=== PATIENT | female | born 1995 | race African-American/Black ===

== ENCOUNTER 2021-01-20 01:05 | Inpatient (IN) | payer MEDICAID ==
[~2021-01-20] VITALS: Ht 157.5 cm; Wt 95.7 kg
[2021-01-20] VITALS (14 sets, daily range): BP systolic 107–137; BP diastolic 62–98
[~2021-01-20 01:05] MED LIST: ABREVA2 GM TOP; FLAGYL500 MG PO; FLEXERIL PO; NAPROSYN500 MG PO; NOHOMEMEDICATIONS; PEPCID20 MG PO; TIZANIDINE HCL4 MG PO
[2021-01-20] MEDS ORDERED: CYMBALTA30 MG PO (01:14)
[2021-01-20] MEDS ORDERED: ADDERALL 10 MG10 MG PO (01:14)
[2021-01-20] MEDS ORDERED: HYDROXYZINE PAM25 M1 PO (01:15)
[2021-01-20] MEDS ORDERED: CHILDREN'S ZYRT10 M1 PO (01:15)
[2021-01-20] MEDS ORDERED: [UNRECOGNIZED DRUG - OTHER] PO (01:16)
[2021-01-20 02:38] LABS: ABSOLUTE NEUTROPHILS 4.9 thou/uL (1.4-8.2)
[2021-01-20 02:41] LABS: BASOPHILS 0.4 % (0.0-2.0); EOSINOPHILS 0.9 % (0.0-3.0); LYMPHOCYTES 18.7 % (24.0-44.0); MCH 20.1 pg (26.0-34.0); MCHC 31.1 g/dL (28.0-37.0); MCV 64.6 fL (80.0-100.0); MONOCYTES 7.6 % (1.0-8.0); PLATELET COUNT 434 thou/uL (150-400); POLYS 72.4 % (36.0-66.0); RBC 2.89 mil/uL (4.20-5.00); WBC 6.7 thou/uL (4.0-11.0)
[2021-01-20 02:43] LABS: ANION GAP 10 mmol/L (7-16); BUN 11 mg/dL (7-18); CALCIUM 8.2 mg/dL (8.5-10.1); CHLORIDE 104 mmol/L (98-107); CO2 25 mmol/L (21-32); CREATININE 0.7 mg/dL (0.6-1.0); GLUCOSE 102 mg/dL (74-106); POTASSIUM 3.4 mmol/L (3.5-5.1); SODIUM 139 mmol/L (136-145)
[2021-01-20 02:46] LABS: HEMOGLOBIN 5.8 gm/dL (12.0-15.0)
[2021-01-20 02:47] LABS: HEMATOCRIT 18.7 % (37.0-47.0)
[2021-01-20 02:53] LABS: MAGNESIUM 1.7 mg/dL (1.8-2.4); TROPONIN-I <0.06 ng/mL (<0.06)
[2021-01-20] MEDS ORDERED: [UNRECOGNIZED DRUG - OTHER] PO (03:44)
[2021-01-20 05:09] LABS: % SATURATION 2 % (20-39); IRON 9 ug/dL (50-170); TIBC 386 ug/dL (250-450)
[2021-01-20 05:11] LABS: FOLIC ACID 14.6 ng/mL (8.6-58.9)
--- NOTE | 2021-01-20 07:23 | NUR ---
PT ARRIVED TO [facility] AT AROUND 04:30 AM. VSS AFEBRILE. 100 % ON RA. ALERT AND ORIENTED X4. EXPLAINED FALL PRECAUTIONS. PT AGREED TO CALL PRIOR TO GETTING OOB DUE TO WEAKNESS AND DIZZINESS AND HX OF SYNCOPAL EPISODE. HG 5.8. I UNIT PRBCS INFUSING. NO S/S REACTION NOTED. INFORMED DAY SHIFT NS TO RECHECK HG 1 HR AFTER TRANSFUSION. INFORMED NURSE HEAD VICTORIANO PT C/O PALPITATION TYPE PAIN IN CHEST GOING ALL THE WAY BACK TO HER BACK. NURSE HEAD STATED SHE WOULD ORDER SOMETHING FOR HER PAIN OTHER THAN TYLENOL OR IBUPROFEN DUE TO BLEEDING. STILL WAITING FOR ORDER. DAY SHIFT NS TEXTED CELI TO F/U FOR PAIN MEDS. SCDS ON . BED ALARM ON. CAREPLAN INITIATED.
--- NOTE | 2021-01-20 08:57 | EKG ---
[address] [place] [employer] [place] [address] ELECTROCARDIOGRAM REPORT Name: FISH GRAVES Room #: 356-P ADM IN M.R.#: [id number] Admission: 01/20/21 Attend Phys: Pierce Diana Discharge: Date of : 89 Report #: [id number] [facility] ED Test Date: 2021-01-20 Test Time: 01:12:09 Pat Name: FISH GRAVES Department: Room: 356 P Gender: F Public Works Technician: NATE : 1995 Requested By: Pierce Diana Order Number: [id number] MD: Kevon Cm Measurements Intervals [place] Rate: 103 P: 48 VT: 177 QRS: 19 QRSD: 80 T: -1 QT: 326 QTc: 427 Interpretive Statements Sinus tachycardia Borderline T abnormalities, diffuse leads Compared to ECG 03/22/2015 00:29:07 T-wave abnormality now present Sinus rhythm no longer present Electronically Signed On 01-20-2021 8:57:14 CDT by Kevon Cm [email or web address] <ELECTRONICALLY SIGNED> By: Kevon Cm MD, [facility] 01/20/21 0857 011 011 Kevon Cm MD, FACC /EPI
[2021-01-20 10:23] LABS: HEMOGLOBIN 7.3 gm/dL (12.0-15.0)
--- NOTE | 2021-01-20 10:36 | NUR ---
MESSAGED DR GALAVIZ, PT HGB NOW 7.3 AFTER 1 UNIT BLOOD
[2021-01-20 17:19] LABS: HEMATOCRIT 26.7 % (37.0-47.0); HEMOGLOBIN 8.8 gm/dL (12.0-15.0)
--- NOTE | 2021-01-20 17:35 | NUR ---
THIS RN MESSAGED DR GALAVIZ OF PT HBG 8.8
--- NOTE | 2021-01-20 18:36 | NUR ---
DR GALAVIZ REQUESTED THIS RN TO CALL DR VENTURA TO SEE IF SHE IS READY FOR PT TO DC. THIS RN LEFT VM FOR DR VENTURA AT HER LISTED OFFICE NUMBER. NO ANSWERING SERVICE AVAILABLE.
--- NOTE | 2021-01-20 18:40 | NUR ---
PER DR VENTURA: PT IS OK TO DC. PT IS TO TAKE ONE CONTROL PILL PER DAY. PT NEEDS TO CALL DR VENTURA OFFICE 01/21/21 IN MORNING FOR FOLLOW UP APPOINTMENT. THIS RN RELAYED PHYSICIAN MESSAGE TO DR GALAVIZ.
--- NOTE | 2021-01-20 19:30 | NUR ---
[facility] stated pt's called her answering service because of CP(comes and goes) and ABD fiscomfort. Pt's told her that she doesn't feel comfortable to go home since her constipation and CP aren't resolving yet. For OB stand point she can d/c home ,but would like me to pass on message to . Will obtain vs and call physician environmental health and safety leader.
--- NOTE | 2021-01-20 19:45 | NUR ---
Notified Delfina Blas NP regarding of CP and ABD discomfort episode; see new orders. SHe is awared of pt refused to be d/c home tonight.
[2021-01-21 04:22] LABS: HEMATOCRIT 28.4 % (37.0-47.0); MCH 22.6 pg (26.0-34.0); MCHC 31.5 g/dL (28.0-37.0); RBC 3.97 mil/uL (4.20-5.00); RDW 23.9 % (10.5-14.5); WBC 6.8 thou/uL (4.0-11.0)
[2021-01-21 04:35] LABS: MCV 71.5 fL (80.0-100.0)
[2021-01-21 05:45] VITALS: BP 108/67
--- NOTE | 2021-01-21 06:10 | NUR ---
Pt able to sleep tonight after received IV fentnayl. Continue to c/o ABD cramping. She reported changed pad x2 tonight. Hb stable. No result from taking Maxitrate yet. Continue to monitor any changes.
[2021-01-21 07:45] VITALS: BP 110/76
--- NOTE | 2021-01-21 07:48 | NUR ---
ASSUMED PT CARE AT SHIFT CHANGE, PT AWAKE THIS MORNING. PT HAD NOT COMPLETED MAG CITRATE DRINK. THIS RN ENCOURAGED PT TO CONSUME. PT DID FINISH DRINK WHILE THIS RN IN ROOM. PT STATES SHE HAS NOT BEEN ABLE TO HAVE BM YET.
--- NOTE | 2021-01-21 09:45 | NUR ---
THIS RN ADMINISTERED FLEETS ENEMA TO PT. PT UNABLE TO HOLD CONTENTS MORE THAN 30 SECONDS. PT AMBULATED TO TOILET. THIS RN PROVIDED SIDEWAYS TRASH CAN UNDER PT LEGS TO PROVIDE SQUAT POSITION TO ASSIST IN BM. PT ON TOILET AT THIS TIME.
[2021-01-21] MEDS ORDERED: SENOKOT-S1 TA2 PO (09:49)
[2021-01-21 10:25] VITALS: BP 129/77
--- NOTE | 2021-01-21 10:28 | NUR ---
PT HAD SUCCESSFUL SMALL AMOUNT OF BM. PT ABLE TO DRINK PRUNE JUICE, PRN MIRALAX. PT STATES SHE IS GOOD WITH GOING HOME/DC. PT HAS SPOKEN WITH DR VENTURA OFFICE FOR FOLLOW UP APPOINTMENT. PT MOTHER WILL TAKE PT HOME.
[2021-01-21 11:16] VITALS: BP 129/77
[2021-01-21 11:18] VITALS: BP 129/77
== END 2021-01-21 11:15 | disposition home or self-care (01) | DRG 760 ==
LOC: ER 01:05 → EROBS 03:41 → 3W 03:41
PROVIDERS: Emergency Medicine; Nurse Practitioner Family; ADMIT Hospitalist; ATTEND Hospitalist
PROC: 30233N1 Transfusion of Nonautologous Red Blood Cells into Peripheral Vein, Percutaneous Approach (ICD-10-PCS; principal; 2021-01-20)
DX: N93.8 Other specified abnormal uterine and vaginal bleeding (principal); D62 Acute posthemorrhagic anemia; E28.2 Polycystic ovarian syndrome; F41.9 Anxiety disorder, unspecified; Z79.899 Other long term (current) drug therapy; Z91.048 Other nonmedicinal substance allergy status; Z91.018 Allergy to other foods; Z87.440 Personal history of urinary (tract) infections; Z87.891 Personal history of nicotine dependence
CPT/HCPCS: 10879; 23012

== ENCOUNTER 2021-04-20 15:28 | Emergency (ER) | payer MEDICAID ==
[~2021-04-20] VITALS: Ht 157.5 cm; Wt 85.3 kg
[~2021-04-20 15:28] MED LIST changes: +ADDERALL 10 MG10 MG PO; +CHILDREN'S ZYRT10 M1 PO; +CYMBALTA30 MG PO; +HYDROXYZINE PAM25 M1 PO; +SENOKOT-S1 TA2 PO; +[UNRECOGNIZED DRUG - OTHER] PO; +[UNRECOGNIZED DRUG - OTHER] PO
[2021-04-20 16:15] LABS: ABSOLUTE NEUTROPHILS 2.8 thou/uL (1.4-8.2); EOSINOPHILS 1.9 % (0.0-3.0); HEMATOCRIT 38.5 % (37.0-47.0); HEMOGLOBIN 12.2 gm/dL (12.0-15.0); LYMPHOCYTES 30.1 % (24.0-44.0); MCH 23.4 pg (26.0-34.0); MCHC 31.7 g/dL (28.0-37.0); MCV 73.7 fL (80.0-100.0); MONOCYTES 10.8 % (1.0-8.0); PLATELET COUNT 386 thou/uL (150-400); POLYS 56.2 % (36.0-66.0); RBC 5.23 mil/uL (4.20-5.00); RDW 19.4 % (10.5-14.5)
[2021-04-20 16:23] LABS: URINE BILIRUBIN NEGATIVE (Negative); URINE BLOOD NEGATIVE (Negative); URINE CLARITY CLEAR; URINE COLOR YELLOW; URINE GLUCOSE-RANDOM* NEGATIVE (Negative); URINE KETONES 2+ (Negative); URINE LEUKOCYTES-REFLEX NEGATIVE (Negative); URINE NITRITE-REFLEX NEGATIVE (Negative); URINE PROTEIN (DIPSTICK) NEGATIVE (Negative); URINE SPECIFIC GRAVITY 1.025 (1.005-1.035)
[2021-04-20 16:24] LABS: CALCIUM 9.2 mg/dL (8.5-10.1); CREATININE 0.8 mg/dL (0.6-1.0)
[2021-04-20 16:34] LABS: TOTAL BILIRUBIN 0.3 mg/dL (0.2-1.0); TOTAL PROTEIN 8.2 g/dL (6.4-8.2)
[2021-04-20 18:24] VITALS: BP 128/85
== END 2021-04-20 18:25 | disposition home or self-care (01) ==
LOC: ER 15:28
PROVIDERS: Emergency Medicine; Nurse Practitioner
DX: K59.00 Constipation, unspecified (principal); N83.202 Unspecified ovarian cyst, left side; F41.9 Anxiety disorder, unspecified; Z79.899 Other long term (current) drug therapy; Z91.02 Food additives allergy status; Z91.038 Other insect allergy status

== ENCOUNTER 2021-05-30 11:55 | Emergency (ER) | payer MEDICAID ==
[~2021-05-30] VITALS: Ht 157.5 cm; Wt 81.7 kg
[2021-05-30 12:35] LABS: ABSOLUTE NEUTROPHILS 2.5 thou/uL (1.4-8.2); BASOPHILS 0.5 % (0.0-2.0); WBC 4.4 thou/uL (4.0-11.0)
[2021-05-30 12:37] LABS: EOSINOPHILS 2.1 % (0.0-3.0); HEMATOCRIT 34.7 % (37.0-47.0); LYMPHOCYTES 28.8 % (24.0-44.0); MCH 23.8 pg (26.0-34.0); MCHC 31.8 g/dL (28.0-37.0); MCV 74.8 fL (80.0-100.0); MONOCYTES 12.4 % (1.0-8.0); PLATELET COUNT 317 thou/uL (150-400); POLYS 56.2 % (36.0-66.0); RBC 4.64 mil/uL (4.20-5.00); RDW 16.9 % (10.5-14.5)
[2021-05-30 12:45] LABS: CALCIUM 8.7 mg/dL (8.5-10.1); CREATININE 0.7 mg/dL (0.6-1.0); POTASSIUM 3.9 mmol/L (3.5-5.1)
[2021-05-30 12:51] LABS: ALBUMIN 3.5 g/dL (3.4-5.0); TOTAL BILIRUBIN 0.4 mg/dL (0.2-1.0); TOTAL PROTEIN 7.3 g/dL (6.4-8.2)
[2021-05-30] MEDS ORDERED: MEDROLDOSEPACK PO (15:03)
[2021-05-30 15:32] VITALS: BP 128/68
--- NOTE | 2021-05-31 08:14 | EKG ---
[address] [place] [address] ELECTROCARDIOGRAM REPORT Name: FISH GRAVES Room #: [facility] Mariano#: [id number] Admission: 05/30/21 Attend Phys: Discharge: 05/30/21 Date of : [birth year] Report #: [id number] [facility] ED Test Date: 2021-05-30 Test Time: 12:09:21 Pat Name: FISH GRAVES Department: Room: Gender: F Communications Assistant: PRIYANKA : 1995 Requested By: Dusty Medina Order Number: [id number] MD: Kevon Cm Measurements Intervals [place] Rate: 71 P: 57 UT: 181 QRS: 16 QRSD: 81 T: 1 QT: 390 QTc: 424 Interpretive Statements Sinus rhythm Compared to ECG 01/20/2021 01:12:09 Sinus tachycardia no longer present T-wave abnormality no longer present Electronically Signed On 05-31-2021 8:14:07 PERCUSSION INSTRUMENT REPAIRER by Kevon Cm [email or web address] <ELECTRONICALLY SIGNED> By: Kevon Cm MD, [facility] 05/31/21 0814 1209 1209 Kevon Cm MD, FACC /EPI
== END 2021-05-30 15:32 | disposition home or self-care (01) ==
LOC: ER 11:55
PROVIDERS: Physician Assistant
DX: R07.89 Other chest pain (principal); Z20.822 Contact with and (suspected) exposure to COVID-19; F41.9 Anxiety disorder, unspecified; Z98.890 Other specified postprocedural states; Z79.891 Long term (current) use of opiate analgesic; Z79.899 Other long term (current) drug therapy; Z91.09 Other allergy status, other than to drugs and biological substances; Z91.018 Allergy to other foods